=== PATIENT | male | born 1960 | race African-American/Black ===

== ENCOUNTER 2022-08-24 09:47 | Emergency (ER) | payer SELFPAY ==
[2022-08-24] MEDS ORDERED: Acetaminophen 500 MG TAB ONE (10:22)
== END 2022-08-24 11:53 | disposition home or self-care (01) ==
LOC: CSHERS 09:47
DX: T69.022A Immersion foot, left foot, initial encounter (principal); T69.021A Immersion foot, right foot, initial encounter; B35.3 Tinea pedis; F17.210 Nicotine dependence, cigarettes, uncomplicated
CPT/HCPCS: 99283

== ENCOUNTER 2022-10-13 09:05 | Emergency (ER) | payer OTHER, SELFPAY ==
[2022-10-13] MEDS ORDERED: Triple Antibiotic Oint 1 GM Packet ONE (10:52)
== END 2022-10-13 11:07 | disposition home or self-care (01) ==
LOC: CSHERS 09:05
DX: S62.522A Displaced fracture of distal phalanx of left thumb, initial encounter for closed fracture (principal); F17.210 Nicotine dependence, cigarettes, uncomplicated; W23.0XXA Caught, crushed, jammed, or pinched between moving objects, initial encounter; Y99.0 Civilian activity done for income or pay

== ENCOUNTER 2023-03-09 14:11 | Emergency (ER) | payer OTHER, SELFPAY | END 2023-03-09 18:00 | disposition home or self-care (01) | LOC: CSHERS 14:11 | DX: L02.415 Cutaneous abscess of right lower limb (principal); F17.210 Nicotine dependence, cigarettes, uncomplicated | CPT/HCPCS: 10060 ==